=== PATIENT | male | born 1960 | race Caucasian/White ===

== ENCOUNTER → 2016-05-19 | Outpatient (CLI) | payer BC ==
--- NOTE | 2016-05-19 10:45 | ECHOS ---
DATE OF SERVICE: 05/19/2016 AGE: 55Y SEX: M HT: 66" WT: 165 lbs. Protocol Bebo: X Others: Stress Echo Stage: IV Dur. of Exercise: 9:30 *Heart Rate Blood Pressure *Rest: 89 Rest: 145/102 * *Max. Achieved: 145 Maximum BP: 206/79 85% PMHR: 142 100% PMHR: 167 *METS: 11 INDICATIONS: Hypertension. MEDICATIONS: Synthroid, citalopram, Motrin. Baseline EKG shows sinus rhythm, normal axis, normal intervals. Patient exercised on Bebo protocol for a total of 9-1/2 minutes achieving 11 METs, 85% of predicted maximal heart rate without chest pain or diagnostic ST segment depression. Baseline echo shows normal left ventricular size, wall motion and systolic function. At post exercise, the basal inferior wall seemed to become hypokinetic. CONCLUSION: 1. Excellent exercise tolerance. 2. Negative stress test by EKG criteria. 3. Abnormal stress echocardiogram showing exercise-induced hypokinesis involving basal inferior wall.
== END ==
LOC: RADNMMAIN 09:05
PROVIDERS: ATTEND Family Medicine
DX: I51.7 Cardiomegaly (principal)
CPT/HCPCS: 93017; 93350

== ENCOUNTER → 2017-04-01 | Outpatient (CLI) | payer BC ==
--- NOTE | 2017-04-01 13:17 | CT ---
EXAMINATION TYPE: CT soft tissue neck w con DATE OF EXAM: 04/01/2017 COMPARISON: NONE HISTORY: 56-year-old male complains of painful right side posterior tongue mass. TECHNIQUE: Contiguous axial scanning of the neck performed with IV Contrast, patient injected with 10 0 mL of Omnipaque 300. Coronal/sagittal reconstructions performed. CT DLP: 315.2 mGycm Automated exposure control for dose reduction was used. FINDINGS: Visualized intracranial structures, orbits and globes, and mastoid air cells appear clear. There is a 1.7 cm polyp or mucosal retention cyst within the left maxillary sinus and a smaller 1.0 c m mucosal retention cyst in the right maxillary sinus. Trace air-fluid level in the right sphenoid sinus. Nasopharynx is clear. There is some slight asymmetric thickening along the right posterior tongue measuring 1.4 x 1.5 cm, a xial image 50 and sagittal image 31. This is a very subtle finding. No dominant mass is identified. The epiglottis and prevertebral soft tissues are within normal limits. Slight asymmetric thickening along the left aryepiglottic fold, axial image 37 may relate to position ing and can be correlated with direct visualization. The glottic and subglottic structures as well as the tracheal column and visualized upper lungs other borges show no abnormality. No cervical lymphadenopathy. The parotid, submandibular, and thyroid glands appear satisfactory. IMPRESSION: 1. SUBTLE ASYMMETRIC THICKENING ALONG THE RIGHT POSTERIOR TONGUE MEASURING 1.4 X 1.5 CM. IF PALPATION YIELDS A MASS, TISSUE SAMPLING CAN BE CONSIDERED. 2. ASYMMETRIC THICKENING ALONG THE LEFT ARYEPIGLOTTIC FOLD MAY RELATE TO POSITIONING. DIRECT VISUALIZ ATION CAN EXCLUDE ANY MUCOSAL SPACE ABNORMALITY. 3. TRACE AIR-FLUID LEVEL IN THE RIGHT SPHENOID SINUS. CORRELATE FOR POSSIBLE ACUTE SINUSITIS. 4. NO CERVICAL LYMPHADENOPATHY.
== END | disposition home or self-care (01) ==
LOC: RADCTMAIN 12:13
PROVIDERS: ATTEND Otolaryngology
DX: K14.8 Other diseases of tongue (principal)
CPT/HCPCS: 70491; Q9967

== ENCOUNTER 2020-09-11 | Observation (INO) | payer SELFPAY | END 2020-09-13 11:35 | disposition home or self-care (01) | PROVIDERS: ADMIT Family Medicine | CPT/HCPCS: 96366 ×2; 96365; 99285; 36415; 93005 ×2; 93306; 93351; 85379; 83880; 80061; 80053; 84443; 82550; 83690; 83735; 84484 ×2; 85025; 85610; 85730 ×2; 83036; 71046; G0378 ×3; J1644 ×3 ==